=== PATIENT | male | born 1980 | race Caucasian/White ===

== ENCOUNTER 2020-08-28 05:36 | Outpatient (RCR) | payer OTHER ==
[~2020-08-28] VITALS: Ht 172.7 cm; Wt 65.8 kg
[~2020-08-28 05:36] MED LIST: CHOL400T29 PO; CYAN100T37 PO; DILT120T3 PO; FINA1TAB16 PO; FLEC50TA PO; MULT-974 PO
== END 2020-08-28 09:50 | disposition home or self-care (01) ==
LOC: PREOP 05:36
PROVIDERS: ATTEND Internal Medicine
DX: Z01.812 Encounter for preprocedural laboratory examination (principal); Z20.822 Contact with and (suspected) exposure to COVID-19
CPT/HCPCS: 87635

== ENCOUNTER 2020-08-30 08:08 | Day surgery (SDC) | payer OTHER ==
--- NOTE | 2020-08-21 18:57 | HISTORY AND PHYSICAL ---
DATE OF SERVICE: COLONOSCOPY HISTORY AND PHYSICAL DATE OF ADMISSION: 08/30/2020. HISTORY OF PRESENT ILLNESS: The patient is a 40-year-old white male, who reports over the past 2 months, increase in loose stools, several bowel movements per day. He has been having some seepage with some itching. He has noticed some increased urgency with small volume fecal incontinence. He has not noted any blood. He is not aware of any family history for colon cancer. He does have apparent mother who has had a number of polyps and a grandparent who had colon cancer, in her 50s or 60s. He denies abdominal pain or distention. Appetite has been normal, but he has been feeling a little more tired than usual. He has noted no melena or bright red blood per rectum. PAST SURGICAL HISTORY: Pertinent for an appendectomy many years ago. PAST MEDICAL HISTORY: He has a hypertension and BPH as well as paroxysmal atrial fibrillation. MEDICATIONS ON ADMISSION: Include diltiazem 120 mg daily and pantoprazole 40 mg daily. PHYSICAL EXAMINATION: GENERAL: Reveals a white male, did not appear to be in acute distress. No evidence for pallor was noted. VITAL SIGNS: Blood pressure 128/80, weight was up 1.6 pounds at 149. CHEST: Clear. CARDIOVASCULAR: Regular rate and rhythm without murmur, S3 or S4. ABDOMEN: Reveals some mild left lower quadrant discomfort to palpation without rebound or guarding. Additionally, no mass or organomegaly noted on abdominal exam. EXTREMITIES: Reveal no cyanosis, clubbing or edema. RECTAL: Digital rectal evaluation revealed no evidence for external hemorrhoids or internal hemorrhoids. No palpable abnormalities were noted. Prostate is anodular, nontender to digital inspection. ASSESSMENT AND PLAN: Change in bowel habits with diarrhea and fecal incontinence, normal sphincter tone with unremarkable digital evaluation not revealing digital evidence for internal or external hemorrhoids. With family history for colon cancer, we will set the patient up for colonoscopy. Prep instructions with the Suprep kit were given and questions were answered. Job ID: [id number] DocumentID: [id number] Dictated Date: 08/21/2020 18:40:35 [employer] Supervisor Date: 08/21/2020 18:57:09 Dictated By: JOHN GARCIA MD
[~2020-08-30] VITALS: Ht 172.7 cm; Wt 65.8 kg
[2020-08-30] VITALS (14 sets, daily range): BP systolic 97–132; BP diastolic 57–88
[2020-08-30] MEDS ORDERED: D5 LR IV SOLUTION 1,000 ML IV ONE (08:09)
--- NOTE | 2020-08-30 08:35 | Pre-Op Note & Conscious Sedat ---
Pre-Operative Progress Note H&P Reviewed The H&P was reviewed, patient examined and no changes noted. Date H&P Reviewed: Aug 30, 2020 Time H&P Reviewed: 08:34 Conscious Sedation Pre-Proced ASA Score 2 For ASA 3 and 4: Consider anesthesia and medical clearance. Also, for patients with a history of failed moderate sedation consider anesthesia. Airway Lungs Heart ASA score ASA 1: a normal healthy patient ASA 2: a patient with a mild systemic disease (mid diabetes, controlled hypertension, obesity ASA 3: a patient with a severe systemic disease that limits activity (angina, COPD, prior Myocardial infarction) ASA 4: a patient with an incapacitating disease that is a constant threat to life (CHF, renal failure) ASA 5: a moribund patient not expected to survive 24 hrs. (ruptured aneurysm) ASA 6: a declared brain- patient whose organs are being harvested. For emergent operations, add the letter E after the classification Mallampati Classification Grade 1 Sedation Plan Analgesia, Amnesia, Plan communicated to team members, Discussed options with patient/fam, Discussed risks with patient/fam The patient is an appropriate candidate to undergo the planned procedure, sedation, and anesthesia. The patient immediately re-assessed prior to indication. JOHN GARCIA MD Aug 30, 2020 08:35
[2020-08-30] MEDS ORDERED: D5 LR IV SOLUTION 1,000 ML IV STA (08:45)
[2020-08-30] MEDS ORDERED: LIDOCAINE JELLY 2% 6 ML SYRINGE MM PRN (08:45)
[2020-08-30] MEDS ORDERED: MIDAZOLAM 5 MG/5 ML (VERSED) VIAL ONE (08:58)
[2020-08-30] MEDS ORDERED: LIDOCAINE JELLY 2% 6 ML SYRINGE ONE (08:58)
[2020-08-30] MEDS ORDERED: fentaNYL INJECTION 100 MCG/2 ML AMP ONE ×2 (08:58→09:33)
[2020-08-30] MEDS ORDERED: MIDAZOLAM 5 MG/5 ML (VERSED) VIAL IV ONE (09:45)
[2020-08-30] MEDS ORDERED: fentaNYL INJECTION 100 MCG/2 ML AMP IVP ONE (09:45)
--- NOTE | 2020-08-30 23:59 | OPERATIVE REPORT ---
DATE OF SERVICE: COLONOSCOPY SUMMARY INDICATION FOR THE PROCEDURE: Bowel habit change with diarrhea. I am his primary care physician. DESCRIPTION OF PROCEDURE: The patient was placed in the left lateral decubitus position. Prior to undergoing colonoscopy, digital rectal evaluation was performed. Anal sphincter tone was normal and the perianal reflexes intact. Prostate was normal in size, anodular, nontender to digital inspection. The colonoscope was then inserted into the rectum and under direct visualization advanced to cecum. The cecum was identified by identification of ileocecal valve and cecal strap. Photographic documentation was obtained. Careful inspection was made as colonoscope withdrawn. Quality of prep was good. The patient did have an irritable bowel type response to air insufflation and colonic manipulation. FINDINGS: There was no evidence for internal or external hemorrhoids and the rectum, sigmoid colon, descending colon, transverse colon, ascending colon and cecum were unremarkable to visual inspection. No evidence for diverticular disease was noted. A biopsy was obtained from the rectum for evaluation for underlying microscopic colitis. ASSESSMENT: Normal colonoscopy to the cecum with an IBS type response to air insufflation and colonic manipulation. If there is no evidence for microscopic colitis, we will likely proceed with Xifaxan for treatment of presumed IBS-D. Job ID: [id number] DocumentID: [id number] Dictated Date: 08/30/2020 15:55:49 Radiology Physician Date: 08/30/2020 23:58:16 Dictated By: JOHN GARCIA MD
== END 2020-08-30 11:05 | disposition home or self-care (01) ==
LOC: ENDO 08:08
PROVIDERS: ATTEND Internal Medicine
DX: R19.7 Diarrhea, unspecified (principal); R19.4 Change in bowel habit; I10 Essential (primary) hypertension; I48.0 Paroxysmal atrial fibrillation; N40.0 Benign prostatic hyperplasia without lower urinary tract symptoms; Z79.899 Other long term (current) drug therapy
CPT/HCPCS: 88305

== ENCOUNTER → 2020-12-19 | Outpatient (CLI) | payer OTHER | LOC: CARD 08:30 | PROVIDERS: ATTEND Internal Medicine | DX: I48.0 Paroxysmal atrial fibrillation (principal) | CPT/HCPCS: 93005 ==

== ENCOUNTER → 2021-11-04 | Outpatient (CLI) | payer OTHER | LOC: CARD 09:30 | PROVIDERS: ATTEND Internal Medicine | DX: I48.0 Paroxysmal atrial fibrillation (principal) | CPT/HCPCS: 93005 ==

== ENCOUNTER → 2022-11-20 | Outpatient (CLI) | payer OTHER | LOC: CARD 08:27 | PROVIDERS: ATTEND Internal Medicine | DX: I48.91 Unspecified atrial fibrillation (principal) | CPT/HCPCS: 93005 ==